=== PATIENT | female | born 1925 | race Caucasian/White ===

== ENCOUNTER → 2016-08-30 | Outpatient (CLI) | payer MEDICARE ==
[~2016-08-30] VITALS: Ht 165.1 cm; Wt 63.5 kg
[~2016-08-30] MED LIST: BIOT5CAP2 PO; CHOL20004 PO; CYAN50TA PO; MAG355OR14 PO; NAPR220C4 PO; POTA99TA10 PO; RANI150T6 PO; SINCALIDE 1.27 MCG in IV NORMAL SALINE 50ML 30 ML IV ONE
--- NOTE | 2016-08-30 11:05 | RAD ---
Radionuclide hepatobiliary scan with gallbladder ejection fraction, 08/30/2016: History: Chronic right-sided pain Following IV injection of 5.5 mCi of technetium 99m Choletec there was prompt uptake of the radionuclide from the blood stream by the liver. Activity is present in the gallbladder and bile ducts at 20 minutes. Small bowel activity develops at 30 minutes. Additional imaging of the gallbladder was performed following IV injection of 1.3 mcg of cholecystokinin. There was minimal gallbladder emptying with the gallbladder ejection fraction calculated at 14%. IMPRESSION: 1. No evidence of cystic duct or common bile duct obstruction. 2. Decreased gallbladder ejection fraction of 14%.
== END | disposition home or self-care (01) ==
LOC: NM 07:59
PROVIDERS: ATTEND Physician Assistant Medical
DX: K80.20 Calculus of gallbladder without cholecystitis without obstruction (principal); G89.29 Other chronic pain
CPT/HCPCS: 78226; 96374; A9537; J2805